=== PATIENT | male | born 1990 | race Hispanic/Latino ===

== ENCOUNTER → 2018-01-13 | Outpatient (CLI) | payer BC, OTHER ==
--- NOTE | 2018-01-16 07:13 | Diagnostic Imaging Report ---
EXAMINATION: MRI of the lumbar spine without contrast HISTORY: Low back pain for the last year after lifting COMPARISON: None. TECHNIQUE: Sagittal T1, T2, STIR; axial T2 and proton density. FINDINGS: It is assumed that there are 5 lumbar vertebrae. Curvature/Alignment: Normal lordosis. Vertebrae: No evidence of recent fracture, infection, or neoplasm. Conus: Normal, terminating at T12-L1 Cauda equina: Unremarkable. Lower thoracic: Unremarkable. Paraspinal soft tissues: Unremarkable. Spinal canal: lower limits of normal diameter. Degenerative changes: Minimal symmetric disc bulge without spinal canal or foraminal stenoses at L2-L3, otherwise within normal limits, no disc herniations, spinal canal or foraminal stenosis. IMPRESSION: Minimal degenerative changes at L2-L3, otherwise no disc herniations, spinal canal or foraminal stenoses. Particularly no evidence of nerve root compression. Signed by: Dr. Kitty Palm M.D. on 01/16/2018 7:09 AM
== END ==
LOC: MRI 15:38
PROVIDERS: ATTEND Anesthesiology Pain Medicine
DX: M54.5 Low back pain (principal)
CPT/HCPCS: 72148